=== PATIENT | female | born 1975 | race Caucasian/White ===

== ENCOUNTER 2017-04-23 17:17 | Emergency (ER) | payer MEDICAID, OTHER, SELFPAY ==
[2017-04-23] MEDS ORDERED: HYDROmorphone 1 MG/ML Syringe IVPUSH ONE (20:23)
[2017-04-23] MEDS ORDERED: Ondansetron 4 MG/2 ML SDV IVPUSH ONE (20:24)
[2017-04-23] MEDS ORDERED: Sodium Chloride 0.9% 1,000 ML IV SCH ×2 (20:30→22:15)
[2017-04-23] MEDS ORDERED: Sodium Chloride 0.9% 10 ML Syringe FLUSH PRN (21:50)
[2017-04-23] MEDS ORDERED: Iopamidol 612 MG/ML 100 ML Bottle IV SCH (22:00)
[2017-04-23] MEDS ORDERED: Sodium Chloride 0.9% 80 ML IV SCH (22:00)
[2017-04-23 22:05] VITALS: BP 118/73
[2017-04-23] MEDS ORDERED: Pantoprazole 40 MG Vial IVPUSH ONE (22:49)
--- NOTE | 2017-04-23 22:54 | EDM.PDOC ---
ED HPI GENERAL MEDICAL PROBLEM - General Chief Complaint: Abdominal Pain Stated Complaint: MIDDLE JAYLEN PAIN Time Seen by Provider: 04/23/17 19:56 Source of Information: Reports: Patient, Family - History of Present Illness INITIAL COMMENTS - FREE TEXT/NARRATIVE: abdominal pain; this is a 41 year old female present to ER with her S.O. for evaluation of pain. report pain is stabbing pain in the epigastric area and radiates to back and right upper quadrant. also with watery diarrhea for two days. last meal; 2 tacos at 12:15pm and chicken last night tolerates fluids intermittent nausea without emesis surgeries; gastric bypass 14 years ago, tubal ligation, , back Onset: Today, Gradual Duration: Constant Location: Reports: Abdomen Quality: Reports: Sharp, Stabbing Severity: Moderate (rates pain at 8 out of 10) Improves with: Reports: None Worsens with: Reports: None Associated Symptoms: Reports: No Other Symptoms Middle Abdominal Pain Score (Numeric/FACES): 7 - Related Data Allergies Allergy/AdvReac Type Severity Reaction Status Date / Time cranberry Allergy Airway Verified 04/13/14 09:08 Tightness Home Meds: Home Meds Gabapentin [Neurontin] 900 mg PO BEDTIME 07/29/13 [History] diphenhydrAMINE [Benadryl] 50 mg PO BEDTIME 04/23/17 [History] 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: Neurological History: Reports: Other (See Below) Other Neuro History: restless leg syndrome - Infectious Disease History Infectious Disease History: Reports: Chicken Pox - Past Surgical History GI Surgical History: Reports: Bariatric Procedure Female Surgical History: Reports: Section, Tubal Ligation Neurological Surgical History: Reports: Discectomy Other Neurological Surgeries/Procedures: discedtomy L5&6 Social & Family History - Tobacco Use Smoking Status *Q: Current Every Day Smoker Years of Tobacco use: 25 Packs/Tins Daily: 0.5 Second Hand Smoke Exposure: Yes - Caffeine Use Caffeine Use: Reports: Coffee - Alcohol Use Days Per Week of Alcohol Use: 1 Number of Drinks Per Day: 2 Total Drinks Per Week: 2 - Recreational Drug Use Recreational Drug Use: No - Living Situation & Occupation Living situation: Reports: with Significant Other (Director of [employer] , 3 children, one child age 13 yrs at home. 2 other grown.) Occupation: Employed ED ROS GENERAL - Review of Systems Review Of Systems: See Below Constitutional: Reports: Other (abdominal pain. ) HEENT: Reports: No Symptoms Respiratory: Reports: No Symptoms Cardiovascular: Reports: No Symptoms Endocrine: Reports: No Symptoms GI/Abdominal: Reports: Abdominal Pain, Diarrhea, Flatus : Reports: No Symptoms Musculoskeletal: Reports: Back Pain (upper back pain) Skin: Reports: No Symptoms Neurological: Reports: No Symptoms Psychiatric: Reports: No Symptoms Hematologic/Lymphatic: Reports: No Symptoms Immunologic: Reports: No Symptoms ED EXAM, GI/ABD - Physical Exam Exam: See Below Exam Limited By: No Limitations General Appearance: Alert, WD/WN, Moderate Distress (holding pressure to epigastric area) Eyes: Bilateral: Normal Appearance Ears: Normal External Exam, Normal Canal, Hearing Grossly Normal, Normal TMs Nose: Normal Inspection, Normal Mucosa, No Blood Throat/Mouth: Normal Inspection, Normal Lips, Normal Teeth, Normal Gums, Normal Oropharynx, Normal Voice, No Airway Compromise Head: Atraumatic, Normocephalic Neck: Normal Inspection, Supple, Non-Tender, Full Range of Motion Respiratory/Chest: No Respiratory Distress, Lungs Clear, Normal Breath Sounds, No Accessory Muscle Use, Chest Non-Tender Cardiovascular: Regular Rate, Rhythm, No Murmur GI/Abdominal Exam: Soft, No Distention, No Mass, Tender (epigastric and right upper quadrant), Other (hypoactive bowel sounds noted. ) (Female) Exam: Deferred Rectal (Female) Exam: Deferred Back Exam: Normal Inspection, Full Range of Motion Extremities: Normal Inspection, Normal Range of Motion, Non-Tender, No Pedal Edema, Normal Capillary Refill Neurological: Alert, Oriented, No Motor/Sensory Deficits Psychiatric: Normal Affect, Normal Mood Skin Exam: Warm, Dry, Intact, Normal Color, No Rash Lymphatic: No Adenopathy Course - Vital Signs Last Recorded V/S: Last Vital Signs Temp 36.8 C 04/23/17 19:50 Pulse 68 04/23/17 22:05 Resp 18 04/23/17 22:05 BP 118/73 04/23/17 22:05 Pulse Ox 100 04/23/17 22:05 - Orders/Labs/Meds Orders: Active Orders 24 hr Category Date Time Status Abdomen Pelvis w Cont [CT] Stat Exams 04/23/17 20:22 Taken Iopamidol [Isovue-300 (61%)] Med 04/23/17 22:00 Active 100 ml IV . DIRECTED Sodium Chloride 0.9% [Normal Saline] 1,000 ml Med 04/23/17 20:30 Active IV ASDIRECTED Sodium Chloride 0.9% [Normal Saline] 1,000 ml Med 04/23/17 22:15 Active IV ASDIRECTED Sodium Chloride 0.9% [Normal Saline] 80 ml Med 04/23/17 22:00 Active IV ASDIRECTED Sodium Chloride 0.9% [Saline Flush] Med 04/23/17 21:50 Active 10 ml FLUSH ASDIRECTED PRN Medication Orders Sodium Chloride (Normal Saline) 1,000 mls @ 999 mls/hr IV ASDIRECTED NAY Last Admin: 04/23/17 20:50 Dose: 999 mls/hr Sodium Chloride (Normal Saline) 80 mls @ 3 mls/sec IV ASDIRECTED NAY Last Admin: 04/23/17 21:52 Dose: 3 mls/sec Sodium Chloride (Normal Saline) 1,000 mls @ 999 mls/hr IV ASDIRECTED NAY Last Admin: 04/23/17 22:18 Dose: 999 mls/hr Iopamidol (Isovue-300 (61%)) 100 ml IV . DIRECTED NAY Last Admin: 04/23/17 21:52 Dose: 100 ml Sodium Chloride (Saline Flush) 10 ml FLUSH ASDIRECTED PRN PRN Reason: Keep Vein Open Last Admin: 04/23/17 21:52 Dose: 10 ml Labs: Laboratory Tests 04/23/17 04/23/17 04/23/17 Range/Units 20:31 20:31 20:45 WBC 7.9 (4.5-11.0) K/uL RBC 4.20 (3.30-5.50) M/uL Hgb 10.1 L (12.0-15.0) g/dL Hct 31.9 L (36.0-48.0) % MCV 76 L (80-98) fL MCH 24 L (27-31) pg MCHC 32 (32-36) % Plt Count 329 (150-400) K/uL Neut % (Auto) 68 H (36-66) % Lymph % (Auto) 24 (24-44) % [place] % (Auto) 7 H (2-6) % Eos % (Auto) 1 L (2-4) % Baso % (Auto) 0 (0-1) % Sodium 139 L (140-148) mmol/L Potassium 3.6 (3.6-5.2) mmol/L Chloride 105 (100-108) mmol/L Carbon Dioxide 27 (21-32) mmol/L Anion Gap 10.6 (5.0-14.0) mmol/L BUN 12 D (7-18) mg/dL Creatinine 0.7 (0.6-1.0) mg/dL Est Cr Clr Drug Dosing 93.17 mL/min Estimated GFR (MDRD) > 60 (>60) Glucose 86 (74-106) mg/dL Calcium 8.5 (8.5-10.1) mg/dL Total Bilirubin 0.3 (0.2-1.0) mg/dL AST 22 (15-37) U/L ALT 19 (12-78) U/L Alkaline Phosphatase 70 (46-116) U/L Total Protein 7.5 (6.4-8.2) g/dL Albumin 4.0 (3.4-5.0) g/dL Globulin 3.5 (2.3-3.5) g/dL Albumin/Globulin Ratio 1.1 L (1.2-2.2) Amylase 61 D (25-115) U/L Lipase 71 L (73-393) U/L Urine Color Yellow Urine Appearance Clear Urine pH 6.0 (4.5-8.0) Ur Specific [place] 1.010 (1.008-1.030) Urine Protein Negative (NEGATIVE) mg/dL Urine Glucose (UA) Normal (NEGATIVE) mg/dL Urine Ketones 15 H (NEGATIVE) mg/dL Urine Occult Blood Negative (NEGATIVE) Urine Nitrite Negative (NEGATIVE) Urine Bilirubin Negative (NEGATIVE) Urine Urobilinogen Normal (NORMAL) mg/dL Ur Leukocyte Esterase Negative (NEGATIVE) Urine RBC 0-5 (0-5) Urine WBC 0-5 (0-5) Ur Epithelial Cells Rare Amorphous Sediment Not seen Urine Bacteria Moderate Urine Mucus Not seen Meds: Medications Generic Name Dose Route Start Last Admin Trade Name Freq PRN Reason Stop Dose Admin Sodium Chloride 1,000 mls @ 999 mls/hr 04/23/17 20:30 04/23/17 20:50 Normal Saline IV 999 mls/hr ASDIRECTED NAY Administration Sodium Chloride 80 mls @ 3 mls/sec 04/23/17 22:00 04/23/17 21:52 Normal Saline IV 3 mls/sec ASDIRECTED NAY Administration Sodium Chloride 1,000 mls @ 999 mls/hr 04/23/17 22:15 04/23/17 22:18 Normal Saline IV 999 mls/hr ASDIRECTED NAY Administration Iopamidol 100 ml 04/23/17 22:00 04/23/17 21:52 Isovue-300 (61%) IV 100 ml . DIRECTED NAY Administration Sodium Chloride 10 ml 04/23/17 21:50 04/23/17 21:52 Saline Flush FLUSH 10 ml ASDIRECTED PRN Administration Keep Vein Open Discontinued Medications Generic Name Dose Route Start Last Admin Trade Name Freq PRN Reason Stop Dose Admin Hydromorphone HCl 1 mg 04/23/17 20:23 04/23/17 20:55 Dilaudid IVPUSH 04/23/17 20:24 1 mg ONETIME ONE Administration Ondansetron HCl 4 mg 04/23/17 20:24 04/23/17 20:53 Zofran IVPUSH 04/23/17 20:25 4 mg ONETIME ONE Administration Pantoprazole Sodium 40 mg 04/23/17 22:49 Protonix Iv IVPUSH 04/23/17 22:50 ONETIME ONE - Re-Assessments/Exams Free Text/Narrative Re-Assessment/Exam: 04/23/17 23:08 given IV fluids, IV Dilaudid, IV Zofran, IV Protonix; symptoms resolved labs negative except for ketones in urine CT scan abdomen-pelvis; negative for acute process Consult to Dr. Emiliano Minor; will see tomorrow at 10 am in Surgery Clinic for recheck/follow up. advise no changes in diets or medications. review with Ms. Sylvester and SO, agree with plan of care. Departure - Departure Time of Disposition: 23:10 Disposition: Home, Self-Care 01 Condition: Good Clinical Impression: Abdominal pain - Discharge Information Referrals: Mannie Malone MD [Primary Care Provider] - Forms: ED Department Discharge Care Plan Goals: Abdominal Pain; epigastric and right upper quadrant -labs and Abdomen/pelvis done in ER -copy of CT report given to patient -consult with Dr. Emiliano Minor, Surgeon -will be seen in Surgery Clinic by Tereza Celis, MAKAYLA at 10 am tomorrow -advise to continue usual diet and fluids advise to follow in am Surgery Clinic on 04-24-2017 at 10 am. return to ER for any increased pain, fever, chills, nausea, vomiting, worsen diarrhea, rash or any concerns. - Problem List & Annotations (1) Abdominal pain SNOMED Code(s): 00991552 Code(s): R10.9 - UNSPECIFIED ABDOMINAL PAIN Status: Acute Priority: Medium Current Visit: Yes - Problem List Review Problem List Initiated/Reviewed/Updated: Yes - My Orders Last 24 Hours: My Active Orders 04/23/17 20:22 Abdomen Pelvis w Cont [CT] Stat 04/23/17 20:30 Sodium Chloride 0.9% [Normal Saline] 1,000 ml IV ASDIRECTED 04/23/17 21:50 Sodium Chloride 0.9% [Saline Flush] 10 ml FLUSH ASDIRECTED PRN 04/23/17 22:00 Iopamidol [Isovue-300 (61%)] 100 ml IV . DIRECTED Sodium Chloride 0.9% [Normal Saline] 80 ml IV ASDIRECTED 04/23/17 22:15 Sodium Chloride 0.9% [Normal Saline] 1,000 ml IV ASDIRECTED - Assessment/Plan Last 24 Hours: My Active Orders 04/23/17 20:22 Abdomen Pelvis w Cont [CT] Stat 04/23/17 20:30 Sodium Chloride 0.9% [Normal Saline] 1,000 ml IV ASDIRECTED 04/23/17 21:50 Sodium Chloride 0.9% [Saline Flush] 10 ml FLUSH ASDIRECTED PRN 04/23/17 22:00 Iopamidol [Isovue-300 (61%)] 100 ml IV . DIRECTED Sodium Chloride 0.9% [Normal Saline] 80 ml IV ASDIRECTED 04/23/17 22:15 Sodium Chloride 0.9% [Normal Saline] 1,000 ml IV ASDIRECTED Plan: Abdominal Pain; epigastric and right upper quadrant -labs and Abdomen/pelvis done in ER -copy of CT report given to patient -consult with Dr. Emiliano Minor, Surgeon -will be seen in Surgery Clinic by Tereza Celis at 10 am tomorrow -advise to continue usual diet and fluids advise to follow in am Surgery Clinic on 04-24-2017 at 10 am. return to ER for any increased pain, fever, chills, nausea, vomiting, worsen diarrhea, rash or any concerns.
== END 2017-04-23 23:23 | disposition home or self-care (01) ==
LOC: JP.ED 17:17
DX: R10.11 Right upper quadrant pain (principal); R10.13 Epigastric pain; F17.210 Nicotine dependence, cigarettes, uncomplicated
CPT/HCPCS: 36415; 74177; 80053; 81001; 82150; 83690; 85025; 96361; 96374; 96375; 99284; C9113; J1170; J2405; J7030; J7040; J7050; Q9967; 99283

== ENCOUNTER 2019-10-04 09:10 | Emergency (ER) | payer OTHER ==
[2019-10-04 09:30] VITALS: BP 128/85; PULSE 102
[2019-10-04] MEDS ORDERED: Ketorolac 60 MG/2 ML SDV IM ONE (09:47)
--- NOTE | 2019-10-04 09:50 | EDM.PDOC ---
ED HPI GENERAL MEDICAL PROBLEM - General Chief Complaint: Upper Extremity Injury/Pain Stated Complaint: RIGHT SHOULDER PAIN Time Seen by Provider: 10/04/19 09:45 Source of Information: Reports: Patient, RN Notes Reviewed History Limitations: Reports: No Limitations - History of Present Illness INITIAL COMMENTS - FREE TEXT/NARRATIVE: 43-year-old female presents emergency department a complaint of right shoulder pain, she had admits to being intoxicated last night is unsure of what happened she woke up this morning severe right shoulder pain difficult for her to raise her arm above her head. 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: Neurological History: Reports: Other (See Below) Other Neuro History: restless leg syndrome - Infectious Disease History Infectious Disease History: Reports: Chicken Pox - Past Surgical History GI Surgical History: Reports: Bariatric Procedure Female Surgical History: Reports: Section, Tubal Ligation Neurological Surgical History: Reports: Discectomy Other Neurological Surgeries/Procedures: discetomy L5&6 Social & Family History - Caffeine Use Caffeine Use: Reports: Coffee Other Caffeine Use: 2 pots daily - Recreational Drug Use Recreational Drug Use: No - Living Situation & Occupation Living situation: Reports: with Significant Other (Director of Adult [employer] , 3 children, one child age 13 yrs at home. 2 other grown.) Occupation: Employed Review of Systems - Review of Systems Review Of Systems: See Below Constitutional: Reports: No Symptoms Respiratory: Reports: No Symptoms Cardiovascular: Reports: No Symptoms Musculoskeletal: Reports: Shoulder Pain Neurological: Reports: No Symptoms ED EXAM, GENERAL - Physical Exam Exam: See Below Free Text/Narrative:: Examination of the right shoulder I do not appreciate any erythema there is no edema she is exquisitely tender to any palpation over the collarbone as well as the shoulder will not tolerate much of an exam radial pulse +2 sensation intact Exam Limited By: No Limitations General Appearance: Alert, Mild Distress Course - Vital Signs Last Recorded V/S: Last Vital Signs Temp 97.5 F 10/04/19 09:37 Pulse 102 H 10/04/19 09:37 Resp 20 10/04/19 09:37 BP 128/85 10/04/19 09:37 Pulse Ox 98 10/04/19 09:37 - Orders/Labs/Meds Meds: Medications Discontinued Medications Generic Name Dose Route Start Last Admin Trade Name Freq PRN Reason Stop Dose Admin Ketorolac Tromethamine 60 mg 10/04/19 09:47 10/04/19 09:53 Toradol IM 10/04/19 09:48 60 mg ONETIME ONE Administration Departure - Departure Time of Disposition: 10:25 Disposition: Home, Self-Care 01 Condition: Fair Clinical Impression: Right shoulder strain Qualifiers: Encounter type: initial encounter Qualified Code(s): S46.911A - Strain of unspecified muscle, fascia and tendon at shoulder and upper arm level, right arm , initial encounter - Discharge Information Prescriptions: Acetaminophen with Codeine [Tylenol with Codeine #3 Tablet] 1 each PO TID PRN # 10 tablet PRN Reason: Pain Instructions: Shoulder Pain, [id number] Referrals: Mannie Malone MD [Primary Care Provider] - Forms: ED Department Discharge Additional Instructions: Continue to use ibuprofen as needed for pain control as baseline, use the Tylenol 3 with codeine for additional pain control if needed, continue to use rest and ice follow-up with your primary care in the next 3 to 5 days for reevaluation if no improvement, consider physical therapy and/or MRI for further evaluation, call return to the emergency department worsening of condition. Your medications have been faxed to [facility] pharmacy Sepsis Event Note - Evaluation Sepsis Screening Result: No Definite Risk - Focused Exam Vital Signs: Vital Signs Temp Pulse Resp BP Pulse Ox 10/04/19 09:37 97.5 F 102 H 20 128/85 98 10/04/19 09:29 97.5 F 102 H 20 128/85 98 Date Exam was Performed: 10/04/19 Time Exam was Performed: 10:25 - Assessment/Plan Plan: Assessment Acuity = acute Site and laterality = right shoulder strain Etiology = secondary to trauma Manifestations = none Location of injury = Home Lab values = x-ray reveals no fracture Plan She had some relief from the Toradol provided prescription written for Tylenol 3 1 tab p.o. 3 times daily PRN total #10 have her follow-up with her primary care in 3 to 5 days for reevaluation which may include physical therapy and/or MRI This note was dictated using [employer] voice recognition software please call with any questions on syntax or grammar.
--- NOTE | 2019-10-04 10:17 | CR ---
Shoulder Comp Rt CLINICAL HISTORY: Pain, fall FINDINGS: There is no acute fracture or dislocation in the right shoulder. Articular surfaces are smooth. Impression: Negative
== END 2019-10-04 10:35 | disposition home or self-care (01) ==
LOC: JP.ED 09:10
DX: S46.911A Strain of unspecified muscle, fascia and tendon at shoulder and upper arm level, right arm, initial encounter (principal); Z91.018 Allergy to other foods; W19.XXXA Unspecified fall, initial encounter
CPT/HCPCS: 73030; 96372; 99283; J1885

== ENCOUNTER 2020-10-29 23:51 | Emergency (ER) | payer SELFPAY ==
[2020-10-30] MEDS ORDERED: Ketorolac 30 MG/ML SDV IVPUSH ONE (00:31)
--- NOTE | 2020-10-30 00:35 | EDM.PDOC ---
ED HPI GENERAL MEDICAL PROBLEM - General Chief Complaint: Abdominal Pain Stated Complaint: ABD PAIN Time Seen by Provider: 10/30/20 00:32 Source of Information: Reports: Patient History Limitations: Reports: No Limitations - History of Present Illness INITIAL COMMENTS - FREE TEXT/NARRATIVE: pt arrived with upper abdomanal pain radiating to each side. She was nauseated but that is better. She has not vomited. Her bms are normal. She has been drinking alot of fluid. She did run a 5 k a few days ago. Onset: Today, Other ( started this pm. 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: Musculoskeletal History: Reports: None Neurological History: Reports: Migraines, Other (See Below) Other Neuro History: restless leg syndrome Psychiatric History: Reports: None Endocrine/Metabolic History: Reports: None Hematologic History: Reports: None Immunologic History: Reports: None Oncologic (Cancer) History: Reports: None Dermatologic History: Reports: None - Infectious Disease History Infectious Disease History: Reports: Chicken Pox - Past Surgical History Head Surgeries/Procedures: Reports: None GI Surgical History: Reports: Bariatric Procedure Female Surgical History: Reports: Section, Tubal Ligation Neurological Surgical History: Reports: Discectomy Other Neurological Surgeries/Procedures: discetomy L5&6 Social & Family History - Tobacco Use Tobacco Use Status *Q: Current Every Day Tobacco User Years of Tobacco use: 25 Packs/Tins Daily: 0.5 - Caffeine Use Caffeine Use: Reports: Coffee, Tea Other Caffeine Use: 2 pots daily - Recreational Drug Use Recreational Drug Use: No - Living Situation & Occupation Living situation: Reports: with Significant Other (Director of Adult [employer], 3 children, one child age 13 yrs at home. 2 other grown.) Occupation: Employed ED ROS GENERAL - Review of Systems Review Of Systems: See Below Constitutional: Reports: No Symptoms HEENT: Reports: No Symptoms Respiratory: Reports: No Symptoms Cardiovascular: Reports: No Symptoms Endocrine: Reports: No Symptoms GI/Abdominal: Reports: Abdominal Pain, Nausea : Reports: No Symptoms Musculoskeletal: Reports: No Symptoms Skin: Reports: No Symptoms ED EXAM, GI/ABD - Physical Exam Exam: See Below Text/Narrative:: pt arrived feeling like she had pain starting in the middle and going out to the side. She has not vomited. She is post RNY but has not had pain like this in the past. Exam Limited By: No Limitations General Appearance: Alert, Anxious, Moderate Distress Ears: Normal TMs Nose: Normal Inspection Throat/Mouth: Normal Inspection Head: Atraumatic Neck: Normal Inspection Respiratory/Chest: No Respiratory Distress Cardiovascular: Regular Rate, Rhythm GI/Abdominal Exam: Soft, Other (mild epigastric tenderness) (Female) Exam: Deferred Rectal (Female) Exam: Deferred Back Exam: Normal Inspection Extremities: Normal Inspection Neurological: Alert, Oriented, Normal Cognition Course - Vital Signs Last Recorded V/S: Last Vital Signs Temp 36.4 C 10/30/20 00:09 Pulse 78 10/30/20 01:26 Resp 18 10/30/20 01:26 BP 132/90 10/30/20 01:26 Pulse Ox 98 10/30/20 01:26 - Orders/Labs/Meds Labs: Laboratory Tests 10/30/20 10/30/20 10/30/20 Range/Units 00:25 00:25 00:53 WBC 6.6 (4.5-11.0) K/uL RBC 3.89 (3.30-5.50) M/uL Hgb 10.0 L (12.0-15.0) g/dL Hct 32.7 L (36.0-48.0) % MCV 84 (80-98) fL MCH 26 L (27-31) pg MCHC 31 L (32-36) % Plt Count 323 (150-400) K/uL Neut % (Auto) 63 (36-66) % Lymph % (Auto) 26 (24-44) % [place] % (Auto) 10 H (2-6) % Eos % (Auto) 1 L (2-4) % Baso % (Auto) 1 (0-1) % Sodium 143 (140-148) mmol/L Potassium 3.7 (3.6-5.2) mmol/L Chloride 105 (100-108) mmol/L Carbon Dioxide 25 (21-32) mmol/L Anion Gap 12.9 (5.0-14.0) mmol/L BUN 11 (7-18) mg/dL Creatinine 0.7 (0.6-1.0) mg/dL Est Cr Clr Drug Dosing 93.25 mL/min Estimated GFR (MDRD) > 60 (>60) Glucose 91 (74-106) mg/dL Calcium 8.4 L (8.5-10.1) mg/dL Total Bilirubin 0.2 (0.2-1.0) mg/dL AST 27 (15-37) U/L ALT 34 D (12-78) U/L Alkaline Phosphatase 73 (46-116) U/L C-Reactive Protein < 0.05 (0.0-0.3) mg/dL Total Protein 6.8 (6.4-8.2) g/dL Albumin 3.5 (3.4-5.0) g/dL Globulin 3.3 (2.3-3.5) g/dL Albumin/Globulin Ratio 1.1 L (1.2-2.2) Lipase 76 (73-393) U/L Urine Color Yellow (YELLOW) Urine Appearance Clear (CLEAR) Urine pH 6.5 (5.0-8.0) Ur Specific [place] 1.025 (1.008-1.030) Urine Protein Negative (NEGATIVE) mg/dL Urine Glucose (UA) Negative (NEGATIVE) mg/dL Urine Ketones Negative (NEGATIVE) mg/dL Urine Occult Blood Negative (NEGATIVE) Urine Nitrite Negative (NEGATIVE) Urine Bilirubin Negative (NEGATIVE) Urine Urobilinogen 0.2 (0.2-1.0) EU/dL Ur Leukocyte Esterase Negative (NEGATIVE) Urine RBC 0-5 (0-5) Urine WBC 0-5 (0-5) Ur Epithelial Cells Few Amorphous Sediment Few Urine Bacteria Few Urine Mucus Not seen Meds: Medications Discontinued Medications Generic Name Dose Route Start Last Admin Trade Name Freq PRN Reason Stop Dose Admin Al Hydroxide/Mg Hydroxide 15 0 ml 10/30/20 01:08 10/30/20 01:22 ml/ Lidocaine HCl 15 ml PO 10/30/20 01:09 30 ml ONETIME ONE Administration Sodium Chloride 80 mls @ 3.5 mls/sec 10/30/20 02:30 10/30/20 02:45 Normal Saline IV 3.5 mls/sec ASDIRECTED NAY Administration Iopamidol 129 ml 10/30/20 02:22 10/30/20 02:45 Iopamidol 612 Mg/Ml 500 Ml Multipack Bottle IV 10/30/20 02:23 129 ml ONETIME ONE Administration Ketorolac Tromethamine 30 mg 10/30/20 00:31 10/30/20 00:38 Ketorolac 30 Mg/Ml Sdv IVPUSH 10/30/20 00:32 30 mg ONETIME ONE Administration Pantoprazole Sodium 40 mg 10/30/20 01:08 10/30/20 01:24 Pantoprazole 40 Mg Vial IVPUSH 10/30/20 01:09 40 mg ONETIME ONE Administration Sodium Chloride 10 ml 10/30/20 00:29 10/30/20 01:24 Sodium Chloride 0.9% 10 Ml Syringe FLUSH 10 ml ASDIRECTED PRN Administration Keep Vein Open Sodium Chloride 10 ml 10/30/20 02:22 10/30/20 02:45 Sodium Chloride 0.9% 10 Ml Syringe FLUSH 10/30/20 02:23 10 ml ONETIME ONE Administration - Re-Assessments/Exams Free Text/Narrative Re-Assessment/Exam: 10/30/20 03:42 pt was found to have normal lab work. She was found to be tender in te rt upper abdoman on reevaluation. A cat scan of the abdoman was obtained and proved to be neg. She was given a gi cocktail and did get some relief. She was also given protonix 40 mg iv. Departure - Departure Time of Disposition: 03:44 Disposition: Home, Self-Care 01 Condition: Fair Clinical Impression: Gastrointestinal irritation - Discharge Information Instructions: Gastritis, Adult, [id number] Referrals: PCP,None [Primary Care Provider] - Forms: ED Department Discharge Care Plan Goals: elevate head when resting. prilosec 20mg bid for the next week, if persistent symptoms see regular provider. Consider a gastro to look at the stomach and a US on the GB Sepsis Event Note (ED) - Evaluation Sepsis Screening Result: No Definite Risk
[2020-10-30] MEDS: Sodium Chloride 0.9% 10 ML Syringe FLUSH PRN ×2 (00:38→01:24)
[2020-10-30] MEDS ORDERED: Alum Hydrox/Mag Hydrox/Simeth 15 ML, Lidocaine 2% 15 ML PO ONE ×2 (01:08)
[2020-10-30] MEDS ORDERED: Pantoprazole 40 MG Vial IVPUSH ONE (01:08)
[2020-10-30 01:27] VITALS: BP 132/90; PULSE 78
[2020-10-30] MEDS ORDERED: Sodium Chloride 0.9% 10 ML Syringe FLUSH ONE (02:22)
[2020-10-30] MEDS ORDERED: Iopamidol 612 MG/ML 500 ML Multipack Bottle IV ONE (02:22)
[2020-10-30] MEDS ORDERED: Sodium Chloride 0.9% 80 ML IV SCH (02:30)
--- NOTE | 2020-10-30 03:36 | CRLCT ---
INDICATION: Upper abdominal pain TECHNIQUE: CT abdomen and pelvis acquired with 129 cc Isovue-300 IV contrast. COMPARISON: April 23, 2017 FINDINGS: Lower chest: Unremarkable. Liver: Hepatic steatosis. Spleen: Unremarkable. Pancreas: Unremarkable. Gallbladder and bile ducts: Unremarkable. Adrenal glands: Unremarkable. Kidneys: Unremarkable. GI tract: Status post gastric bypass procedure. Moderate amount of feces in the colon. Appendix is normal. Vascular structures: Unremarkable. Lymph nodes: Unremarkable. Miscellaneous: Unremarkable. No free air or significant free fluid. Pelvic Organs: 1.3 cm round hypodensity on the right ovary, likely a physiologic cyst. Bones: Unremarkable for age. IMPRESSION: No acute intra-abdominal process identified. Hepatic steatosis. Moderate amount of feces in the colon. Status post gastric bypass procedure. Please note that all CT scans at this facility use dose modulation, iterative reconstruction, and/or weight-based dosing when appropriate to reduce radiation dose to as low as reasonably achievable. Dictated by Zayra Pretty MD @ 10/30/2020 3:34:[address] Zayra Pretty @ Oct 30 2020 3:34AM
== END 2020-10-30 03:56 | disposition home or self-care (01) ==
LOC: JP.ED 23:51
DX: K92.89 Other specified diseases of the digestive system (principal); Z91.018 Allergy to other foods; Z72.0 Tobacco use
CPT/HCPCS: 36415; 74177; 80053; 81001; 83690; 85025; 86140; 96374; 96375; 99284; 99284-25; A9270-GY; C9113; J1885; Q9967

== ENCOUNTER 2023-02-08 16:55 | Emergency (ER) | payer OTHER ==
[2023-02-08 17:40] VITALS: BP 138/85; PULSE 77
== END 2023-02-08 18:58 | disposition home or self-care (01) ==
LOC: JP.ED 16:55
DX: S60.221A Contusion of right hand, initial encounter (principal); S60.031A Contusion of right middle finger without damage to nail, initial encounter; Z91.018 Allergy to other foods; W22.09XA Striking against other stationary object, initial encounter
CPT/HCPCS: 73130-RT; 99282; 99283